=== PATIENT | male | born 1955 | race Caucasian/White ===

== ENCOUNTER 2020-07-27 08:51 | Outpatient (RCR) | payer BC, SELFPAY ==
[2015-03-18 18:01] VITALS: BMI 25.1
== END 2020-09-19 23:59 ==
LOC: IMMUN 08:51
PROVIDERS: PCP Internal Medicine; Referring Provider Family Medicine; Visit Provider Family Medicine
DX: Z23 Encounter for immunization (principal)
CPT/HCPCS: 0001A; 0002A; 91300

== ENCOUNTER 2024-10-08 17:07 | Emergency (ER) | payer BC, MEDICARE, SELFPAY ==
[2024-10-08 17:07] VITALS: BP 174/89; PULSE 96; RESP 18; TEMP 36.8; O2SAT 98; BMI 24.3
--- NOTE | 2024-10-08 17:45 | EDS_ITS ---
HPI History of Present Illness HPI Narrative: 69-year-old male [id number]. Dog bite left hand yesterday at 430. His dog. Dog is having pain in her hips and chest accidentally bit him.Tetanus up-to-date. Patient seen in urgent care and sent to the emergency department. Chief Complaint: Bite Informant: patient Onset/Context/Timing Onset: Yesterday Context: Sudden Onset Timing: Continuous Current Severity: Mild Maximum Severity: Mild Narrative Narrative: 69-year-old male was bit by his dog yesterday when he lifted her she has pain in her hips. Today noticed some redness to the thumb seen in urgent care sent to the emergency department. Denies any fever or other complaints. Tetanus Immunization: 5-10 years Prior similar symptoms: No Recent Illness/Hospitalization: No ROS ROS ED ROS Narrative Denies recent injury. Denies fever or chills. Constitutional Constitutional ED: Denies chills or fever(s) Eyes Eyes: Denies blurry vision ENT ENT ED: Denies ear pain Cardiovascular Cardiovascular: Denies chest pain or palpitations Respiratory/Chest Respiratory/Chest: Reports cough Gastrointestinal Gastrointestinal: Denies abdominal pain Genitourinary Genitourinary ED: Denies dysuria or hematuria Musculoskeletal Musculoskeletal: Denies arthralgias Integumentary Denies abscess Neurologic Neurologic: Denies headache(s) Psychiatric Psychiatric: Denies anxiety or depression Endocrine Endocrinology: Denies polydipsia or polyphagia Hematologic/Lymphatic Hematologic/Lymphatic: Denies easy bleeding, easy bruising or lymphadenopathy Allergic/Immunologic Allergic/Immunologic ED: Denies mouth swelling or tongue swelling [facility] Medical History No active medical problems Home Medications ?Medication ?Instructions ?Recorded ?Last Taken ?Type aspirin 81 mg tablet,delayed 81 mg PO DAILY@0800 03/18 Unknown History release amoxicillin 875 mg-potassium 1 tab PO BID 10 days #20 tabs 10/08/24 Unknown Rx clavulanate 125 mg tablet Allergy/AdvReac Type Severity Reaction Status Date / Time No Known Allergies Allergy Verified 10/08/24 17:07 Surgical History No pertinent past surgical history Social History Smoking Status: Never smoker alcohol intake: never substance use type: does not use EXAM Physical Exam Narrative Exam Narrative: Well-appearing 69-year-old male. Vital signs stable afebrile. No acute distress. Clinically looks well. H EENT exam pupils round react to light. Moist mutes members. Neck nontender no lymphadenopathy. Lungs clear to auscultation. Heart regular rhythm rate about 90 no murmur. Chest wall ribs nontender. Abdomen soft nontender. Moving all 4 extremities. Neurovascular intact. Normal range of motion. He is a small dog bite on his left dorsal thumb small flap. This occurred 24 hours ago. He has mild redness in that area. Also mild redness on his distal left wrist. He is able to open and close his hand he has full range of motion all digits of the left hand and full flexion extension of the wrist. No signs of tenosynovitis. His proximal forearm and upper arm there is no lymphangitic streaking. There is no swelling. Or tenderness. He has no axillary lymphadenopathy. Strong radial pulse. Other extremities are unremarkable. Neurologically he is awake and alert. Answering questions following commands. Const Vital Signs: 10/08/24 17:07 Temperature 98.2 F Temperature Source Oral Pulse Rate 96 Respiratory Rate 18 Blood Pressure 174/89 H Blood Pressure Mean 117 Pulse Ox 98 Oxygen Delivery Method Room Air Positive well nourished and well developed; Negative for obese, cachectic, contractures or unkempt General Appearance ED: well developed and NAD; Negative for unkempt, cachectic or contractures Nutritional Appearance: Negative for cachectic or obese HEENT Reports moist mucous membranes normocephalic and atraumatic Eyes PERRL and EOMs intact bilaterally Neck full ROM and no lymphadenopathy Resp normal respiratory effort and clear to auscultation bilaterally Cardio regular rate, regular rhythm, S1 normal heart sound, S2 normal heart sound and no murmurs GI non-tender, non-distended and no masses Auscultation: normoactive bowel sounds Palpation: soft; Negative for tender no CVA tenderness Bladder / Kidney Exam: No CVA tenderness Back/Spine no CVA tenderness General Back: Negative for CVA tenderness Cervical Spine: Negative for cervical spine tenderness Thoracic Spine / Upper Back: Negative for thoracic spinal tenderness Lumbar Spine / Lower Back: Negative for lumbar spinal tenderness Extremity normal to inspection and full ROM Extremity Narrative: Except left hand small dog bite dorsum left Funt. Mild cellulitis. Normal range of motion. No tenosynovitis. Minimal redness left dorsal wrist. No axillary lymphadenopathy. No lymphangitic streaking up his proximal arm. Neuro oriented x3 and CN's II-XII intact bilaterally Sensorium / Orientation: alert, oriented to person, oriented to place and oriented to time; Negative for orientation impaired, confused, lethargic or stuporous Motor Exam: strength 5/5 throughout Psych mental status grossly normal and thought process normal Appearance: Negative for unkempt Skin Skin Narrative: Cellulitis around the dog bite. Lesions: no lesions Rashes: No no rashes MDM MDM MDM Narrative Medical decision making narrative: 69-year-old male with dog bite infected left thumb. No tenosynovitis. No axillary lymphadenopathy. No significant swelling or tenderness. Normal range of motion. He does not need admitted or labs. Tetanus is up-to-date. He will be given a dose of Augmentin here. Take 1 again the night before bedtime. Twice daily for 10 days. He knows to return if this is looking worse. History & Record Review Discussion w/independent historian: Patient Additional record(s) reviewed:: No prior records Discharge Plan Triage Chief Complaint: Bite ED Provider: Polo Collado Dx/Rx/DC Orders Clinical Impression: Dog bite of left hand with infection Instructions: ED Dog Bite Prescriptions: New amoxicillin-pot clavulanate 875-125 mg tablet 1 tab PO BID 10 Days Qty: 20 0RF No Action aspirin 81 MG tablet 81 mg PO DAILY@0800 Primary Care Provider: Care Physician,No Primary Referrals: Joey Thomas MD [Med Staff - Senior Operations Analyst] - As Needed Sunday Hall MD [Med Staff - Senior Operations Analyst] - Activity Restrictions/Additional Instructions: The dog bites infected. You be started on the antibiotic Augmentin. Will give you 1 here prior to discharge. Take 1 tonight before bedtime. Then start taking it tomorrow after breakfast and after dinner. You will take it twice a day till gone. Ice and elevate your hand. If the swelling is getting worse or you develop a fever or your forearm and arm gets more swollen return to the emergency department. Hopefully will just progressively get better. But if it gets worse just return to the emergency department. Tylenol for any pain and/or Motrin. Print Language: [place] Disposition Disposition: Home, Self Care
[2024-10-08 17:58] VITALS: BP 147/85; PULSE 76; RESP 16; TEMP 36.9; O2SAT 100
[2024-10-08] MEDS: Amox/Clavulanate 875 MG Tablet PO (17:58)
--- NOTE | 2024-10-08 18:09 | CM.ED ---
Social Work Reason for visit: No PCP Patient confirmed need for PCP list, [facility] provider list given. No further needs identified. Karis Bhardwaj, DIRECTOR OF DESIGN, [employer]
== END 2024-10-08 18:53 | disposition home or self-care (01) ==
LOC: ED 17:49
PROVIDERS: Emergency Provider Emergency Medicine; Visit Provider Emergency Medicine
DX: S61.452A Open bite of left hand, initial encounter (principal); S61.052A Open bite of left thumb without damage to nail, initial encounter; W54.0XXA Bitten by dog, initial encounter
CPT/HCPCS: 99282